=== PATIENT | male | born 1940 | race Caucasian/White ===

== ENCOUNTER → 2021-04-22 | Outpatient (CLI) | payer MEDICARE ==
[~2021-04-22] MED LIST: ALLO300T PO; AMLO-211 PO; ATOR-2 PO; HYDR25TA6 PO; TAMS0.4C2 PO
[2021-04-22 13:15] LABS: BASOPHILS % (AUTO) 1 % (0-1); EOSINOPHILS % (AUTO) 10 % (1-7); LYMPHOCYTES % (AUTO) 21 % (22-44); MEAN CORPUSCULAR HEMOGLOBIN 32.4 pg (27.5-34.5); MEAN CORPUSCULAR HGB CONC 34.4 g/dL (33.2-36.2); MEAN PLATELET VOLUME 7.9 fL (7.4-10.4); MONOCYTES % (AUTO) 7 % (2-9); NEUTROPHILS % (AUTO) 61 % (42-75); PLATELET COUNT 152 x10^3/uL (130-400); RED BLOOD COUNT 5.17 x10^6/uL (4.38-5.82); RED CELL DISTRIBUTION WIDTH 14.7 % (9.4-14.8)
[2021-04-22 13:22] LABS: INTERNATIONAL NORMALIZED RATIO 1.03 (0.93-1.1)
[2021-04-22 13:25] LABS: ALBUMIN 3.1 g/dL (3.4-5.0); ANION GAP 3 mmol/L (5-15); CALCIUM 9.2 mg/dL (8.5-10.1); CHLORIDE 103 mmol/L (98-107)
[2021-04-22 13:28] LABS: ALANINE AMINOTRANSFERASE 18 U/L (12-78); ALKALINE PHOSPHATASE 90 U/L (45-117); BILIRUBIN,TOTAL 0.4 mg/dL (0.2-1.0); CREATININE 1.04 mg/dL (0.7-1.3); TOTAL PROTEIN 6.7 g/dL (6.4-8.2)
[2021-04-22 13:46] LABS: MICROSCOPIC AUTO
== END | disposition home or self-care (01) ==
LOC: STAR 12:14
PROVIDERS: ATTEND Urology
DX: Z01.818 Encounter for other preprocedural examination (principal); N32.89 Other specified disorders of bladder; I49.1 Atrial premature depolarization; I45.2 Bifascicular block; I25.2 Old myocardial infarction
CPT/HCPCS: 36415; 80053; 81001; 85025; 85610; 93005

== ENCOUNTER 2021-04-29 08:05 | Day surgery (SDC) | payer MEDICARE ==
[~2021-04-29] VITALS: Ht 175.3 cm; Wt 58.4 kg
[~2021-04-29 08:05] MED LIST changes: +ACETAMINOPHEN 325 MG TABLET PO PRN; +EPHEDRINE 50 MG/ML, 1ML IVPush PRN; +FENTANYL PF 100 MCG/2ML IV PRN; +HYDROmorphone 1 MG/ML, 1ML INJ IVPush PRN; +LABETALOL 5MG/ML, 20ML IV PRN; +ONDANSETRON 2MG/ML, 2ML IVPush PRN; +OXYcodone 5 MG/5 ML ORAL.SOL UDC PO PRN; +PROMETHAZINE 25 MG/ML, 1ML IVPush PRN; +hydrALAzine 20 MG/ML, 1ML IV PRN
[2021-04-29 08:44] VITALS: BP 128/74
[2021-04-29] MEDS ORDERED: CHLORHEXIDINE 15 ML UDC ONE (08:51)
[2021-04-29] MEDS ORDERED: LACTATED RINGERS 1,000 ML IV SCH (09:00)
[2021-04-29] MEDS ORDERED: CHLORHEXIDINE 15 ML UDC PO ONE (09:00)
[2021-04-29] MEDS ORDERED: FENTANYL PF 100 MCG/2ML ONE (09:13)
[2021-04-29] MEDS ORDERED: PROPOFOL 10 MG/ML, 20ML ONE (09:15)
[2021-04-29] MEDS ORDERED: ROCURONIUM 10MG/ML,5ML ONE (09:15)
[2021-04-29] MEDS ORDERED: CEFAZOLIN 1,000 MG ONE (09:15)
[2021-04-29] MEDS ORDERED: SUCCINYLCHOLINE 20 MG/ML, 10ML ONE (09:15)
[2021-04-29] MEDS ORDERED: DEXAMETHASONE 4 MG/ML, 1ML ONE (09:15)
[2021-04-29] MEDS ORDERED: ONDANSETRON 2MG/ML, 2ML ONE (09:15)
[2021-04-29] MEDS ORDERED: SUGAMMADEX 200 MG/2 ML IVPush ONE ×2 (09:29)
[2021-04-29] MEDS ORDERED: GEMCITABINE HCL 1,000 MG in SODIUM CHLORIDE 0.9% 23.7 ML IS ONE (09:30)
[2021-04-29] MEDS ORDERED: EPHEDRINE 50 MG/ML, 1ML ONE (09:37)
[2021-04-29] MEDS ORDERED: OPIUM/BELLADONNA SUPP.RECT 16.2-30 MG ONE (09:57)
[2021-04-29] MEDS ORDERED: ACETAMINOPHEN 650 MG/20.3 ML UDC ONE (11:12)
[2021-04-29] MEDS ORDERED: OXYcodone 5 MG/5 ML ORAL.SOL UDC ONE (11:13)
[2021-04-29] MEDS ORDERED: TIZANIDINE 4MG TABLET PO SCH (13:00)
== END 2021-04-29 12:16 | disposition home or self-care (01) ==
LOC: OUT 08:05
PROVIDERS: ATTEND Urology
DX: N32.89 Other specified disorders of bladder (principal); C67.9 Malignant neoplasm of bladder, unspecified; N40.0 Benign prostatic hyperplasia without lower urinary tract symptoms; I10 Essential (primary) hypertension; J44.9 Chronic obstructive pulmonary disease, unspecified; F17.210 Nicotine dependence, cigarettes, uncomplicated; Z79.899 Other long term (current) drug therapy
CPT/HCPCS: 51720; 52240; 88307; J0330; J0690; J1100; J2405; J2704; J3010; J7120; J9201